=== PATIENT | male | born 1960 | race Caucasian/White ===

== ENCOUNTER 2017-08-27 10:56 | Emergency (ER) | payer SELFPAY ==
[~2017-08-27] VITALS: Ht 170.2 cm; Wt 68.0 kg
[2017-08-27 10:58] VITALS: BP 162/78; PULSE 100; RESP 16; TEMP 98.4; O2SAT 99
[2017-08-27] MEDS ORDERED: SULFAMETHOXAZOLE-TRIMETHOPRIM DS 800-160 MG TAB PO ONE (11:15)
[2017-08-27] MEDS ORDERED: HIBI4LIQ TOPICAL (11:20)
[2017-08-27] MEDS ORDERED: BACT800T5 PO (11:20)
--- NOTE | 2017-08-27 11:20 | PD ---
HPI Chief Complaint: Skin Problem Time Seen by Provider: 11:09 Travel History International Travel<30 days: No Contact w/Intl Traveler<30days: No Traveled to known affect area: No History of Present Illness HPI the patient is a 57-year-old male who presents emergency department for skin lesions that he developed one week ago on Tuesday. [place], states he was exposed to somebody with similar lesions on the skin. He complains of a lesion over the right shoulder, right aspect of the face, the left arm. He does know some crusting of mild drainage. He also complains of nasal congestion and a mild sore throat. He denies any fever, chills, or sweats. He denies any history of MRSA. Symptoms are mild to moderate, possibly exacerbated after he was exposed to somebody with similar lesions, and there are no current alleviating factors. [facility] Past Medical History Medical History: Denies Significant Hx Past Surgical History Surgical History: No Previous Surgery Social History Tobacco Use: Yes Allergies-Medications (Allergen,Severity, Reaction): Coded Allergies: No Known Allergies (Unverified , 08/27/17) Review of Systems Except as stated in HPI: all other systems reviewed are Neg General / Constitutional: No: Fever, Chills HENT: Positive: Sore Throat, Congestion Cardiovascular: No: Chest Pain or Discomfort Respiratory: No: Cough Musculoskeletal: No: Myalgias, Arthralgias Skin: Positive Other (as noted in the history of present illness) Physical Exam Narrative GENERAL: Awake, alert, pleasant 57-year-old male who appears his stated age and is in no acute respiratory distress. SKIN: Focused skin assessment warm/dry. Patient has circular lesions on the left arm, located over the distal biceps, lesion which is circular with crusting over the right trapezius, and one lesion over the right facial area. HEAD: Atraumatic. Normocephalic. EYES: Pupils equal and round. No scleral icterus. No injection or drainage. ENT: Cobblestoning in the oropharynx, but no erythema or exudate. NECK: Trachea midline. No JVD. MUSCULOSKELETAL: No obvious deformities. No clubbing. No cyanosis. No edema. NEUROLOGICAL: Awake and alert. No obvious cranial nerve deficits. Motor grossly within normal limits. Normal speech. PSYCHIATRIC: Appropriate mood and affect; insight and judgment normal. Data Data Last Documented VS Vital Signs Date Time Temp Pulse Resp B/P (MAP) Pulse Ox O2 Delivery O2 Flow Rate FiO2 08/27/17 10:58 98.4 100 16 162/78 (106) 99 Orders Orders Sulfamet-Trimeth Ds 800-160 Mg (Bactrim (08/27/17 11:15) [facility] Medical Decision Making Medical Screen Exam Complete: Yes Emergency Medical Condition: Yes Medical Record Reviewed: Yes Differential Diagnosis Differential diagnoses includes impetigo, community-acquired MRSA, dermatitis, postnasal drip, pharyngitis, URI, viral syndrome. Narrative Course The patient's physical examination is consistent with postnasal drip and impetigo, most likely a community-acquired MRSA. The patient is advised to take [id number] Claritin for his nasal congestion and postnasal drip. The patient will be placed on Bactrim for 7 days for his impetigo and then will be prescribed Hibiclens for possible MRSA. He is also advised to wash and bleaches sheets. Return if symptoms worsen or progress. Diagnosis Primary Impression: Impetigo Additional Impression: Postnasal drip Patient Instructions: General Instructions Additional Instructions: Medications as directed. Wash and bleach your sheets. Follow-up with a primary physician. [id number] Claritin as needed. Stop smoking. Return if symptoms worsen or progress. Med/Other Pt SpecificInfo: Prescription(s) given Scripts Chlorhexidine Gluconate Topical (Hibiclens Topical) 4% Liq 1 APPLIC TOPICAL ONCE for Skin Cleanser, #118 ML 0 Refills Prov: Garo Dupont MD 08/27/17 Sulfamethoxazole-Trimethoprim (Bactrim DS) 800-160 Mg Tab 1 TAB PO BID for Infection, #14 TAB 0 Refills Prov: Garo Dupont MD 08/27/17 Disposition: 01 DISCHARGE HOME Condition: Stable Garo Dupont MD Aug 27, 2017 11:20
== END 2017-08-27 11:33 | disposition home or self-care (01) ==
LOC: NEPD 10:56
DX: L01.00 Impetigo, unspecified (principal); R09.82 Postnasal drip; Z72.0 Tobacco use
CPT/HCPCS: 99284